=== PATIENT | female | born 1970 | race Caucasian/White ===

== ENCOUNTER 2022-06-04 09:14 | Emergency (ER) | payer SELFPAY ==
[2022-06-04] MEDS ORDERED: Hydrocortisone Sod Succ/PF 100 mg/2 ml Vial ONE (14:32)
[2022-06-04] MEDS ORDERED: Nicotine 14 MG PATCH ONE (14:32)
[2022-06-04] MEDS ORDERED: Hydrocortisone 1% Cream 30 GM TUBE TOP SCH (14:45)
== END 2022-06-04 15:20 | disposition home or self-care (01) ==
LOC: ERS 09:14
DX: F41.9 Anxiety disorder, unspecified (principal); F17.210 Nicotine dependence, cigarettes, uncomplicated
CPT/HCPCS: 99283; J1720